=== PATIENT | male | born 1985 | race African-American/Black ===

== ENCOUNTER 2022-06-18 11:01 | Emergency (ER) | payer SELFPAY ==
[~2022-06-18] VITALS: Ht 185.4 cm; Wt 105.0 kg
[2022-06-18 11:23] VITALS: BP 144/72
[2022-06-18] MEDS ORDERED: KETOROLAC 60MG/2ML VIAL IM ONE (11:30)
[2022-06-18] MEDS ORDERED: KETOROLAC 60MG/2ML VIAL IM NR (14:15)
[2022-06-18] MEDS ORDERED: CYCL10TA21 MT (14:26)
[2022-06-18] MEDS ORDERED: IBUP-2029 MT (14:26)
== END 2022-06-18 16:08 | disposition home or self-care (01) ==
LOC: ER 11:01
DX: M79.10 Myalgia, unspecified site (principal); V49.49XA Driver injured in collision with other motor vehicles in traffic accident, initial encounter; Y93.89 Activity, other specified; Y92.89 Other specified places as the place of occurrence of the external cause; Y99.8 Other external cause status
CPT/HCPCS: 71045; 72040; 72100; 96372; 99284; J1885; Z7610